=== PATIENT | male | born 1995 | race Caucasian/White ===

== ENCOUNTER 2018-10-26 20:22 | Emergency (ER) | payer SELFPAY ==
[~2018-10-26] VITALS: Ht 180.3 cm; Wt 99.8 kg
[2018-10-26 20:37] VITALS: BP 145/80
--- NOTE | 2018-10-26 20:38 | NUR ---
TO BED # 07 AMBULATORY
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
--- NOTE | 2018-10-26 21:33 | NUR ---
Dr. Basurto examining patient.
[2018-10-26] MEDS ORDERED: ACETAMINOPHEN EXTRA STRENGTH 500 MG TAB PO ONE (21:40)
--- NOTE | 2018-10-26 21:40 | NUR ---
PT TAKEN TO CT
--- NOTE | 2018-10-26 21:47 | NUR ---
PT RETURN FROM CT
[2018-10-26 22:57] VITALS: BP 132/82
--- NOTE | 2018-10-26 22:57 | NUR ---
Patient discharged with v/s stable. Written and verbal after care instructions given and explained. Patient alert, oriented and verbalized understanding of instructions. Ambulatory with steady gait. All questions addressed prior to discharge. ID band removed. Patient advised to follow up with PMD. Rx of Acetaminophen 500mg given. Patient educated on indication of medication including possible reaction and side effects. Opportunity to ask questions provided and answered.
== END 2018-10-26 22:57 | disposition home or self-care (01) ==
LOC: MED 20:22
DX: R51 Headache (principal); V89.2XXA Person injured in unspecified motor-vehicle accident, traffic, initial encounter; Y93.89 Activity, other specified; Y92.89 Other specified places as the place of occurrence of the external cause; Y99.8 Other external cause status
CPT/HCPCS: 70450; 99284